=== PATIENT | male | born 1960 | race Native Hawaiian/Other Pacific Islander ===

== ENCOUNTER 2018-11-14 14:30 | Emergency (ER) | payer OTHER ==
[~2018-11-14] VITALS: Ht 170.2 cm; Wt 113.4 kg
[2018-11-14 15:06] LABS: PLATELET COUNT 289 K/uL (142-355)
[2018-11-14 15:10] LABS: POTASSIUM 3.2 mmol/L (3.6-5.2)
[2018-11-14 16:11] LABS: PARTIAL THROMBOPLASTIN TIME 26.6 SECONDS (24.5-33.6)
[2018-11-14 18:03] VITALS: BP 163/64; TEMP 97.9
== END 2018-11-14 18:04 | disposition short-term general hospital (02) ==
LOC: ED 14:30
PROVIDERS: Emergency Medicine
DX: R07.89 Other chest pain (principal); E87.6 Hypokalemia; R79.0 Abnormal level of blood mineral; X50.0XXA Overexertion from strenuous movement or load, initial encounter
CPT/HCPCS: 36415; 80053; 82550; 83690; 83735; 84484; 85027; 85610; 85730; 93005; 96365; 99284; J3475

== ENCOUNTER 2018-11-14 18:08 | Outpatient (CLI) | payer OTHER | END 2018-11-14 19:26 | disposition short-term general hospital (02) | LOC: AMB 18:08 | DX: R07.89 Other chest pain (principal) | CPT/HCPCS: A0425; A0429 ==

== ENCOUNTER 2021-06-12 15:59 | Emergency (ER) | payer OTHER ==
[~2021-06-12] VITALS: Ht 170.2 cm; Wt 113.4 kg
[2021-06-12 16:48] LABS: PLATELET COUNT 233 K/uL (142-355)
[2021-06-12 17:00] LABS: POTASSIUM 3.9 mmol/L (3.6-5.2)
[2021-06-12 17:03] LABS: PARTIAL THROMBOPLASTIN TIME 28.1 SECONDS (24.5-33.6)
[2021-06-12 17:40] VITALS: BP 135/72; TEMP 99
== END 2021-06-12 17:40 | disposition home or self-care (01) ==
LOC: ED 15:59
PROVIDERS: Emergency Medicine
DX: J20.9 Acute bronchitis, unspecified (principal); E11.65 Type 2 diabetes mellitus with hyperglycemia; Z79.84 Long term (current) use of oral hypoglycemic drugs
CPT/HCPCS: 80053; 83880; 84484; 85027; 85379; 85610; 85730; 93005; 94664; 96365; 99284; J0696

== ENCOUNTER 2021-06-17 13:11 | Emergency (ER) | payer OTHER ==
[~2021-06-17] VITALS: Ht 170.2 cm; Wt 113.4 kg
[2021-06-17 13:17] VITALS: TEMP 98.5
[2021-06-17 13:46] LABS: PLATELET COUNT 356 K/uL (142-355)
[2021-06-17 13:54] LABS: POTASSIUM 4.2 mmol/L (3.6-5.2)
[2021-06-17 14:04] LABS: PARTIAL THROMBOPLASTIN TIME 26.2 SECONDS (24.5-33.6)
[2021-06-17 15:00] VITALS: BP 148/70
== END 2021-06-17 15:00 | disposition home or self-care (01) ==
LOC: ED 13:11
PROVIDERS: Emergency Medicine
DX: J20.9 Acute bronchitis, unspecified (principal); I10 Essential (primary) hypertension; Z20.822 Contact with and (suspected) exposure to COVID-19; E11.9 Type 2 diabetes mellitus without complications; Z79.84 Long term (current) use of oral hypoglycemic drugs
CPT/HCPCS: 80053; 83880; 84484; 85027; 85379; 85610; 85730; 87635; 93005; 94664; 96372; 99283; J2920; J3490; U0003

== ENCOUNTER 2021-06-20 12:39 | Emergency (ER) | payer OTHER ==
[~2021-06-20] VITALS: Ht 170.2 cm; Wt 113.4 kg
[2021-06-20 12:43] VITALS: TEMP 97.8
[2021-06-20 13:22] LABS: PLATELET COUNT 448 K/uL (142-355)
[2021-06-20 13:31] LABS: POTASSIUM 4.1 mmol/L (3.6-5.2)
[2021-06-20 13:38] LABS: PARTIAL THROMBOPLASTIN TIME 24.5 SECONDS (24.5-33.6)
[2021-06-20 14:38] VITALS: BP 158/79
== END 2021-06-20 14:38 | disposition home or self-care (01) ==
LOC: ED 12:39
PROVIDERS: Hospitalist
DX: J45.901 Unspecified asthma with (acute) exacerbation (principal); J40 Bronchitis, not specified as acute or chronic
CPT/HCPCS: 80053; 82550; 83880; 84484; 85027; 85610; 85730; 93005; 94664; 96372; 99283; J2930